=== PATIENT | female | born 1960 | race Caucasian/White ===

== ENCOUNTER 2023-01-11 12:04 | Emergency (ER) | payer MEDICAID ==
[~2023-01-11] VITALS: Ht 152.4 cm; Wt 77.0 kg
[~2023-01-11 12:04] MED LIST: ACET-1079 PO; B COTAB PO; CALC-400 PO; FLU05NSL; HYDR12.55 PO; HYDR20TA19 PO; LEVO100T8 PO; LORA-622 PO; PANT1INJ3 PO; PRENCAP15 PO; [UNRECOGNIZED DRUG - CODE] PO
[2023-01-11] MEDS ORDERED: TRAM50TA2 PO (20:30)
[2023-01-11] MEDS ORDERED: DexAMETHasone SOD PHOS 10MG/1ML VIAL INJ IM ONE (20:30)
[2023-01-11 20:55] VITALS: BP 149/92; PULSE 59; RESP 59; TEMP 98.4; O2SAT 93
[2023-01-11] MEDS ORDERED: HYDROcodone-ACET 5/325MG TAB ONE (21:02)
[2023-01-11] MEDS ORDERED: DexAMETHasone SOD PHOS 10MG/1ML VIAL INJ ONE (21:02)
[2023-01-11] MEDS: HYDROcodone-ACET 5/325MG TAB PO ONE ×2 (21:05→21:07)
== END 2023-01-11 21:17 | disposition home or self-care (01) ==
LOC: ER 12:04
DX: S32.020A Wedge compression fracture of second lumbar vertebra, initial encounter for closed fracture (principal); G89.29 Other chronic pain; M54.50 Low back pain, unspecified; F17.210 Nicotine dependence, cigarettes, uncomplicated; Z88.6 Allergy status to analgesic agent; Z90.49 Acquired absence of other specified parts of digestive tract; X50.1XXA Overexertion from prolonged static or awkward postures, initial encounter; Y93.89 Activity, other specified; Y92.89 Other specified places as the place of occurrence of the external cause; Y99.8 Other external cause status
CPT/HCPCS: 72131; 96372; 99285; J1100